=== PATIENT | male | born 1980 | race Caucasian/White ===

== ENCOUNTER 2017-08-21 12:34 | Emergency (ER) | payer SELFPAY ==
[~2017-08-21] VITALS: Ht 185.4 cm; Wt 85.0 kg
[2017-08-21 12:50] VITALS: BP 142/69; PULSE 80; RESP 16; TEMP 98.4; O2SAT 100
[2017-08-21 13:03] VITALS: BP 131/69; PULSE 76; RESP 18; O2SAT 100
[2017-08-21] MEDS ORDERED: LISI10TA3 PO (13:08)
[2017-08-21] MEDS ORDERED: ALPR.5 PO (13:08)
--- NOTE | 2017-08-21 13:09 | PD ---
HPI Chief Complaint: Chest Pain Time Seen by Provider: 12:59 Travel History International Travel<30 days: No Contact w/Intl Traveler<30days: No Traveled to known affect area: No History of Present Illness HPI This is a 36-year-old male with history of hypertension and anxiety who presents by private vehicle for evaluation of chest pain. He reports that at 10 :30 AM today he was sitting at work typing when he developed left-sided chest tightness, dizziness, shortness of breath and some tingling in his left arm. Symptoms have been persistent since then. He took some Xanax at home which did not seem to help. He reports that he had similar symptoms once before in December 2016. He was seen at an outside hospital for evaluation at that time where he was not given a specific diagnosis. He denies recent illness, cough, congestion, abdominal pain, nausea or vomiting, lower extremity edema, recent travel recent surgery. No family history of [place] that he is aware of. No other complaints. PFSH Past Medical History Anxiety: Yes Hypertension: Yes Social History Alcohol Use: Yes (ON OCCASION) Tobacco Use: No Substance Use: No Allergies-Medications (Allergen,Severity, Reaction): Coded Allergies: No Known Allergies (Unverified , 08/21/17) Reported Meds & Prescriptions Reported Meds & Active Scripts Active Reported Lisinopril 10 Mg Tab 10 Mg PO DAILY Xanax (Alprazolam) 0.5 Mg Tab 0.5 Mg PO Q4H PRN Review of Systems Except as stated in HPI: all other systems reviewed are Neg Physical Exam Narrative GENERAL: Well-developed well-nourished male who appears mildly anxious on examination. SKIN: Warm and dry. HEAD: Atraumatic. Normocephalic. EYES: Pupils equal and round. No scleral icterus. No injection or drainage. ENT: No nasal bleeding or discharge. Mucous membranes pink and moist. NECK: Trachea midline. No JVD. CARDIOVASCULAR: Regular rate and rhythm. No murmur appreciated. RESPIRATORY: No accessory muscle use. Clear to auscultation. Breath sounds equal bilaterally. GASTROINTESTINAL: Abdomen soft, non-tender, nondistended. Hepatic and splenic margins not palpable. MUSCULOSKELETAL: No obvious deformities. No clubbing. No cyanosis. No edema. NEUROLOGICAL: Awake and alert. No obvious cranial nerve deficits. Motor grossly within normal limits. Normal speech. PSYCHIATRIC: Appropriate mood and affect; insight and judgment normal. Data Data Last Documented VS Vital Signs Date Time Temp Pulse Resp B/P (MAP) Pulse Ox O2 Delivery O2 Flow Rate FiO2 08/21/17 13:37 85 17 127/67 (87) 100 Room Air 08/21/17 12:50 98.4 Orders Orders Electrocardiogram (08/21/17 13:06) Basic Metabolic Panel (Bmp) (08/21/17 13:06) Ckmb (Isoenzyme) Profile (08/21/17 13:06) Complete Blood Count With Diff (08/21/17 13:06) Magnesium (Mg) (08/21/17 13:06) Prothrombin Time / Inr (Pt) (08/21/17 13:06) Act Partial Throm Time (Ptt) (08/21/17 13:06) Troponin I (08/21/17 13:06) Ecg Monitoring (08/21/17 13:06) Bilateral Bp Monitoring (08/21/17 13:06) Iv Access Insert/Monitor (08/21/17 13:06) Oximetry (08/21/17 13:06) Oxygen Administration (08/21/17 13:06) Sodium Chloride 0.9% Flush (Ns Flush) (08/21/17 13:15) Chest, Pa & Lat (08/21/17 13:06) Aspirin (Aspirin) (08/21/17 13:15) Nitroglycerin Sl (Nitrostat Sl) (08/21/17 13:15) Lorazepam Inj (Ativan Inj) (08/21/17 13:45) CKMB (08/21/17 13:19) CKMB% (08/21/17 13:19) Ed Discharge Order (08/21/17 14:33) Labs Laboratory Tests Test 08/21/17 13:19 White Blood Count 4.5 TH/MM3 Red Blood Count 4.90 MIL/MM3 Hemoglobin 14.1 GM/DL Hematocrit 40.6 % Mean Corpuscular Volume 82.9 FL Mean Corpuscular Hemoglobin 28.8 PG Mean Corpuscular Hemoglobin Concent 34.7 % Red Cell Distribution Width 12.9 % Platelet Count 248 TH/MM3 Mean Platelet Volume 7.3 FL Neutrophils (%) (Auto) 64.0 % Lymphocytes (%) (Auto) 24.6 % Monocytes (%) (Auto) 8.2 % Eosinophils (%) (Auto) 2.6 % Basophils (%) (Auto) 0.6 % Neutrophils # (Auto) 2.9 TH/MM3 Lymphocytes # (Auto) 1.1 TH/MM3 Monocytes # (Auto) 0.4 TH/MM3 Eosinophils # (Auto) 0.1 TH/MM3 Basophils # (Auto) 0.0 TH/MM3 CBC Comment DIFF FINAL Differential Comment Prothrombin Time 10.7 SEC Prothromb Time International Ratio 1.1 RATIO Activated Partial Thromboplast Time 22.6 SEC Blood Urea Nitrogen 15 MG/DL Creatinine 1.09 MG/DL Random Glucose 114 MG/DL Calcium Level 8.9 MG/DL Magnesium Level 2.1 MG/DL Sodium Level 141 MEQ/L Potassium Level 4.0 MEQ/L Chloride Level 108 MEQ/L Carbon Dioxide Level 24.2 MEQ/L Anion Gap 9 MEQ/L Estimat Glomerular Filtration Rate 76 ML/MIN Total Creatine Kinase 139 U/L Creatine Kinase MB 0.9 NG/ML Troponin I LESS THAN 0.02 NG/ML MDM Medical Decision Making Medical Screen Exam Complete: Yes Emergency Medical Condition: Yes Medical Record Reviewed: Yes Differential Diagnosis Anxiety, costochondritis, acute coronary syndrome, pulmonary embolism, hemothorax, pneumothorax, pericarditis, myocarditis Narrative Course Patient was placed on ECG monitoring pulse oximetry. 12-lead EKG obtained. Lab work, chest x-ray ordered. EKG reveals sinus rhythm. CBC is unremarkable. BMP is unremarkable. Troponin and CK are negative. Chest x-ray is normal. Upon reexamination the patient feels improved. There appears to be an anxiety component to his symptoms. It was recommended that he follow-up with his primary care physician to discuss additional measures that can use to control his anxiety in addition to his current PRN Xanax. Diagnosis Primary Impression: Atypical chest pain Additional Instructions: Follow-up closely with your primary care physician. Return for any acutely new or worsening symptoms. Med/Other Pt SpecificInfo: No Change to Meds Disposition: 01 DISCHARGE HOME Condition: Stable Olvin Cook August 21, 2017 13:09
[2017-08-21 13:15] VITALS: RESP 18; O2SAT 99
[2017-08-21] MEDS ORDERED: ASPIRIN 325 MG TAB PO ONE (13:15)
[2017-08-21] MEDS ORDERED: SODIUM CHLORIDE 0.9% FLUSH 10 ML FLUSH IVF PRN (13:15)
[2017-08-21] MEDS: NITROGLYCERIN 0.4 MG SL 25 TABS/BTL SL SCH ×3 (13:25→13:37)
[2017-08-21 13:26] VITALS: BP 131/69; PULSE 71; RESP 18; O2SAT 100
--- NOTE | 2017-08-21 13:27 | RADRPT ---
EXAM DATE/TIME: 08/21/2017 13:20 [facility] COMPARISON: No previous studies available for comparison. INDICATIONS : Pain left upper, anterior chest and left arm numbness since this morning MEDICAL HISTORY : None. SURGICAL HISTORY : None. ENCOUNTER: Initial ACUITY: 1 day PAIN SCORE: 4/10 LOCATION: Bilateral chest FINDINGS: PA and lateral views of the chest demonstrate the lungs to be symmetrically aerated without evidence of mass, infiltrate or effusion. The cardiomediastinal contours are unremarkable. Osseous structure s are intact. CONCLUSION: No acute disease. Freddy Reynoso MD FACR on August 21, 2017 at 13:24 Board Certified Radiologist. This report was verified electronically.
[2017-08-21 13:30] LABS: AUTOMATED NEUTROPHIL # 2.9 TH/MM3 (1.8-7.7); BASOPHIL % 0.6 % (0.0-2.0); EOSINOPHIL # 0.1 TH/MM3 (0-0.4); EOSINOPHIL % 2.6 % (0.0-4.0); HEMATOCRIT 40.6 % (39.0-51.0); HEMOGLOBIN 14.1 GM/DL (13.0-17.0); LYMPH % 24.6 % (9.0-44.0); LYMPHOCYTE # 1.1 TH/MM3 (1.0-4.8); MEAN CELL VOLUME 82.9 FL (80.0-100.0); MEAN CORPUSCULAR HEMOGLOBIN 28.8 PG (27.0-34.0); MEAN CORPUSCULAR HGB CONC 34.7 % (32.0-36.0); MEAN PLATELET VOLUME 7.3 FL (7.0-11.0); MONO % 8.2 % (0.0-8.0); MONOCYTE # 0.4 TH/MM3 (0-0.9); PLATELET COUNT 248 TH/MM3 (150-450); RED CELL DISTRIBUTION WIDTH 12.9 % (11.6-17.2); WHITE BLOOD COUNT 4.5 TH/MM3 (4.0-11.0)
[2017-08-21 13:31] VITALS: BP 136/69; PULSE 103; RESP 17; O2SAT 100
[2017-08-21 13:37] VITALS: BP 127/67; PULSE 85; RESP 17; O2SAT 100
[2017-08-21 13:37] LABS: INTERNATIONAL NORMALIZED RATIO 1.1 RATIO; PROTHROMBIN TIME - PATIENT 10.7 SEC (9.8-11.6)
[2017-08-21] MEDS ORDERED: LORazepam 2 MG/ML VIAL IV PUSH ONE (13:45)
[2017-08-21 13:59] LABS: TROPONIN I LESS THAN 0.02 NG/ML (0.02-0.05)
[2017-08-21 14:08] LABS: BICARBONATE 24.2 MEQ/L (21.0-32.0); BLOOD UREA NITROGEN 15 MG/DL (7-18); CALCIUM 8.9 MG/DL (8.5-10.1); CHLORIDE 108 MEQ/L (98-107); CREATININE 1.09 MG/DL (0.60-1.30); GLOMERULAR FILTRATION RATE 76 ML/MIN (>89); GLUCOSE,RANDOM 114 MG/DL (74-106); MAGNESIUM 2.1 MG/DL (1.5-2.5); SODIUM (NA) 141 MEQ/L (136-145)
--- NOTE | 2017-08-21 18:17 | PD ---
Data Data Last Documented VS Vital Signs Date Time Temp Pulse Resp B/P (MAP) Pulse Ox O2 Delivery O2 Flow Rate FiO2 08/21/17 13:37 85 17 127/67 (87) 100 Room Air 08/21/17 12:50 98.4 Orders Orders Electrocardiogram (08/21/17 13:06) Basic Metabolic Panel (Bmp) (08/21/17 13:06) Ckmb (Isoenzyme) Profile (08/21/17 13:06) Complete Blood Count With Diff (08/21/17 13:06) Magnesium (Mg) (08/21/17 13:06) Prothrombin Time / Inr (Pt) (08/21/17 13:06) Act Partial Throm Time (Ptt) (08/21/17 13:06) Troponin I (08/21/17 13:06) Ecg Monitoring (08/21/17 13:06) Bilateral Bp Monitoring (08/21/17 13:06) Iv Access Insert/Monitor (08/21/17 13:06) Oximetry (08/21/17 13:06) Oxygen Administration (08/21/17 13:06) Sodium Chloride 0.9% Flush (Ns Flush) (08/21/17 13:15) Chest, Pa & Lat (08/21/17 13:06) Aspirin (Aspirin) (08/21/17 13:15) Nitroglycerin Sl (Nitrostat Sl) (08/21/17 13:15) Lorazepam Inj (Ativan Inj) (08/21/17 13:45) CKMB (08/21/17 13:19) CKMB% (08/21/17 13:19) Ed Discharge Order (08/21/17 14:33) Labs Laboratory Tests Test 08/21/17 13:19 White Blood Count 4.5 TH/MM3 Red Blood Count 4.90 MIL/MM3 Hemoglobin 14.1 GM/DL Hematocrit 40.6 % Mean Corpuscular Volume 82.9 FL Mean Corpuscular Hemoglobin 28.8 PG Mean Corpuscular Hemoglobin Concent 34.7 % Red Cell Distribution Width 12.9 % Platelet Count 248 TH/MM3 Mean Platelet Volume 7.3 FL Neutrophils (%) (Auto) 64.0 % Lymphocytes (%) (Auto) 24.6 % Monocytes (%) (Auto) 8.2 % Eosinophils (%) (Auto) 2.6 % Basophils (%) (Auto) 0.6 % Neutrophils # (Auto) 2.9 TH/MM3 Lymphocytes # (Auto) 1.1 TH/MM3 Monocytes # (Auto) 0.4 TH/MM3 Eosinophils # (Auto) 0.1 TH/MM3 Basophils # (Auto) 0.0 TH/MM3 CBC Comment DIFF FINAL Differential Comment Prothrombin Time 10.7 SEC Prothromb Time International Ratio 1.1 RATIO Activated Partial Thromboplast Time 22.6 SEC Blood Urea Nitrogen 15 MG/DL Creatinine 1.09 MG/DL Random Glucose 114 MG/DL Calcium Level 8.9 MG/DL Magnesium Level 2.1 MG/DL Sodium Level 141 MEQ/L Potassium Level 4.0 MEQ/L Chloride Level 108 MEQ/L Carbon Dioxide Level 24.2 MEQ/L Anion Gap 9 MEQ/L Estimat Glomerular Filtration Rate 76 ML/MIN Total Creatine Kinase 139 U/L Creatine Kinase MB 0.9 NG/ML Troponin I LESS THAN 0.02 NG/ML MDM Supervised Visit with TATA: Yes Narrative Course The history, exam, and medical decision-making in the associated midlevel provider note were completed with my assistance. I reviewed and agree with the findings presented. I attest that I had a [id number] encounter with the patient on the same day, and personally performed and documented my assessment and findings in the medical record. *My assessment and Findings: This is a 36-year-old male who presents to the emergency department with atypical chest pain. EKG is reassuring. Labs are reassuring. Patient has a low risk heart score. Troponin is negative. He does have a history of anxiety. I don't suspect a cardiac etiology of chest pain. I think patient is safe to be discharged and follow up with his primary care physician regarding treatment of anxiety. Diagnosis Primary Impression: Atypical chest pain Patient Instructions: General Instructions Departure Forms: Tests/Procedures Additional Instruction: Follow-up closely with your primary care physician. Return for any acutely new or worsening symptoms. Disposition: 01 DISCHARGE HOME Condition: Stable Radha Mendez MD August 21, 2017 18:17
--- NOTE | 2017-08-22 13:58 | EKG ---
Date Performed: 08/21/2017 Time Performed: 12:59:29 PTAGE: 36 years EKG: Sinus rhythm NORMAL ECG NO PREVIOUS TRACING DOCTOR: Gus Reid Interpretating Date/Time 08/22/2017 13:55:11
== END 2017-08-21 14:55 | disposition home or self-care (01) ==
LOC: NEPE 12:34
DX: R07.89 Other chest pain (principal); F41.9 Anxiety disorder, unspecified; I10 Essential (primary) hypertension; Z79.899 Other long term (current) drug therapy
CPT/HCPCS: 71046; 80048; 82550; 82552; 83735; 84484; 85025; 85610; 85730; 93005; 96374; 99285; J2060